=== PATIENT | male | born 1945 ===

== ENCOUNTER 2024-04-05 13:41 | Observation (INO) ==
[2024-04-05 14:18] LABS: ABS Basophils 0.1 10^3/uL (0.0-0.1); ABS Eosinophils 0.1 10^3/uL (0.0-0.5); ABS Lymphocytes 1.5 10^3/uL (1.0-4.8); ABS Monocytes 0.8 10^3/uL (0.0-1.1); ABS Neutrophils 4.9 10^3/uL (1.5-7.6); Eosinophil % 1.8 %; Hematocrit 40.7 % (38-53); Hemoglobin 14.1 g/dL (13.2-16.3); Lymphocyte % 20.7 %; Mean Corpuscular Hemoglobin 32.2 pg (27-33); Mean Corpuscular Hgb Conc 34.6 g/dL (31-36); Mean Corpuscular Volume 93.1 fL (80-97); Mean Platelet Volume 8.9 fL (7.5-11.2); Platelet Count 190 10^3/uL (150-450); Red Blood Count 4.37 10^6/uL (4.06-5.63); Red Cell Distribution Width 13.2 % (12-17); White Blood Count 7.4 10^3/uL (3.6-10.2)
[2024-04-05 14:37] LABS: Activated Partial Thrombo Time 29.1 seconds (26.0-38.0)
[2024-04-05 14:41] LABS: Albumin 4.4 g/dL (3.2-5.2); Calcium 9.1 mg/dL (8.6-10.3); Creatinine, Serum 1.07 mg/dL (0.67-1.17); Direct Bilirubin 0.1 mg/dL (0.03-0.18); Globulin 2.2 g/dL (2-4); HDL Cholesterol 45.7 mg/dL; Indirect Bilirubin 0.6 mg/dL (0.3-1.0); Potassium 4.3 mmol/L (3.5-5.0); Total Bilirubin 0.7 mg/dL (0.2-1.0); Total Protein 6.6 g/dL (6.4-8.9); eGFR CKD-EPI 70.6 (>60)
[2024-04-05 15:58] LABS: Urine Appearance Clear; Urine Bilirubin Negative (Negative); Urine Blood Negative (Negative); Urine Color Colorless; Urine Glucose Negative (Negative); Urine Ketones Negative (Negative); Urine Nitrite Negative (Negative); Urine Protein Negative (Negative); Urine Specific Gravity 1.005 (1.002-1.030); Urine Urobilinogen Negative (Negative)
[2024-04-05] MEDS: Iohexol 350 (CONTRAST) 500 ML MDV IV ONE (17:23)
[2024-04-05] MEDS: Enoxaparin 40 MG/0.4 ML SYR SUBCUT SCH (20:03)
[2024-04-05 22:45] VITALS: BP 131/81
[2024-04-05 23:12] LABS: Erythrocyte Sed Rate 8 mm/Hr (0-19)
== END 2024-04-05 22:46 | disposition left against medical advice (07) ==
LOC: EDHOLD 13:41 → ED 13:41 → EDHOLD 20:38 → MEDTELE 21:20 → EDHOLD 22:26
PROVIDERS: ADMIT Internal Medicine; ATTEND Internal Medicine